=== PATIENT | male | born 1960 | race African-American/Black ===

== ENCOUNTER 2022-05-20 05:20 | Emergency (ER) | payer MEDICAID, MEDICARE ==
[~2022-05-20] VITALS: Ht 177.8 cm; Wt 89.5 kg
[2022-05-20] MEDS ORDERED: DIPHENHYDRAMINE 50MG/ML VIAL IV ONE ×2 (05:45→11:45)
[2022-05-20] MEDS ORDERED: EPINEPHRINE 1:1000 1 MG/ML AMP IM ONE (05:45)
[2022-05-20] MEDS ORDERED: METHYLPREDNISOLONE SOD SUCC 125 MG/2 ML VIAL IV ONE (05:45)
[2022-05-20 05:59] LABS: BASOPHILS % 0.9 % (0.0-2.0); HEMATOCRIT. 50.4 % (42.0-52.0); HEMOGLOBIN. 17.3 g/dL (14.0-18.0); MEAN CORPUSCULAR HEMOGLOBIN 31.3 pg (28.0-32.0); MEAN CORPUSCULAR VOLUME 91.1 fL (80.0-94.0); MEAN PLATELET VOLUME 7.2 fl (7.4-10.4); MONOCYTES % 9.8 % (2.0-8.0); NEUTROPHILS % 46.3 % (40.0-76.0); PLATELET 333 x1000/uL (130-400); RED BLOOD CELL COUNT 5.54 mill/uL (4.7-6.1); RED CELL DISTRIBUTION WIDTH 14.1 % (11.6-14.6)
[2022-05-20] MEDS ORDERED: HYDROCHLOROTHIAZIDE 25MG TABLET PO ONE (06:15)
[2022-05-20 06:18] LABS: CHLORIDE 102 mEq/L (98-107)
[2022-05-20] MEDS ORDERED: POTASSIUM CHLORIDE 20MEQ/PACKET PO ONE (12:30)
[2022-05-20] MEDS ORDERED: EPIN0.3P3 IM (12:31)
[2022-05-20] MEDS ORDERED: DIPH25CA83 MT (12:33)
[2022-05-20] MEDS ORDERED: P50 MT (12:34)
[2022-05-20 13:49] VITALS: BP 150/102
== END 2022-05-20 13:55 | disposition left against medical advice (07) ==
LOC: ER 05:20
DX: K14.0 Glossitis (principal); R00.0 Tachycardia, unspecified; I10 Essential (primary) hypertension; E87.6 Hypokalemia
CPT/HCPCS: 36415; 80053; 85025; 96372; 96374; 96375; 96376; 99284; J1200; J2930; J3490